=== PATIENT | female | born 1930 | race Caucasian/White ===

== ENCOUNTER 2017-09-22 20:30 | Inpatient (IN) ==
[2017-09-22 22:07] LABS: Basophils # 0.1 10*3/uL (0.0-0.2); Basophils % 0.6 % (0.0-0.8); Eosinophils # 0.3 10*3/uL (0.0-0.87); Eosinophils % 2.6 % (0.00-10.9); Hematocrit 37.1 VOL% (35.7-47.0); Hemoglobin 12.3 GM/DL (12.0-16.0); Immature Granulocytes % 0.5 %; Immature Granulocytes Absolute 0.05 #; Lymphocytes # 1.5 10*3/uL (1.4-4.0); Lymphocytes % 14.1 % (21.3-54.2); Mean Corpuscular HGB Conc 33.2 GM/DL (32-36); Mean Corpuscular Hemoglobin 30 PG (27-34); Mean Corpuscular Volume 91.4 FL (87-102); Mean Platelet Volume 9.4 FL (9.6-12.0); Monocytes # 1.1 10*3/uL (0.11-0.8); Monocytes % 10.3 % (1.7-12.7); Neutrophils # 7.5 10*3/uL (1.4-7.4); Neutrophils % 71.9 % (38.7-73.9); Platelet Count 233 T/CUMM (130-400); Red Blood Count 4.06 MC/CUMM (3.8-5.5); White Blood Count 10.4 T/CUMM (4-12)
[2017-09-22 22:16] LABS: VBG Base Excess 2.4 MEQ/L (0-4); VBG HCO3 26.6 MEQ/L (24-28); VBG PCO2 39.9 MMHG (41-51); VBG PH 7.435
[2017-09-22] MEDS ORDERED: traMADol 50 MG TABLET PO STA (22:19)
[2017-09-22] MEDS ORDERED: traMADol 50 MG TABLET ONE (22:21)
[2017-09-22 22:56] LABS: Alanine Aminotransferase 30 U/L (13-56); Albumin 3.5 G/DL (3.4-5.0); Alkaline Phosphatase 68 U/L (45-117); Aspartate Amino Transferase 28 U/L (0-37); Blood Urea Nitrogen 26 MG/DL (7-18); Calcium 8.6 MG/DL (8.5-10.1); Glucose 112 MG/DL (74-106); Osmolality,Calculated 282.5 MOS/KG (273-304); Potassium 3.9 MMOL/L (3.5-5.1); Sodium 139 MMOL/L (136-145); Total Protein 6.7 G/DL (6.4-8.3); Troponin I Only < 0.015 NG/ML (0.00-0.045)
[2017-09-22] MEDS ORDERED: ONDANSETRON 4 MG/2 ML VIAL IV PRN (23:53)
[2017-09-22] MEDS ORDERED: ACETAMINOPHEN 325 MG TABLET PO PRN (23:53)
[2017-09-22] MEDS ORDERED: FUROSEMIDE 40 MG/4 ML VIAL IV STA (23:53)
[2017-09-23] MEDS ORDERED: FUROSEMIDE 40 MG/4 ML VIAL ONE ×2 (00:27→09:38)
[2017-09-23] MEDS: DOCUSATE SODIUM 100 MG CAPSULE PO SCH ×2 (08:44→20:22)
[2017-09-23] MEDS: PANTOPRAZOLE 40 MG TABLET PO SCH (08:44)
[2017-09-23] MEDS ORDERED: CARVEDILOL 3.125 MG TABLET PO STA ×2 (09:10→09:16)
[2017-09-23] MEDS ORDERED: APIXABAN 2.5 MG TABLET PO SCH (09:30)
[2017-09-23] MEDS ORDERED: CARVEDILOL 3.125 MG TABLET ONE (09:32)
[2017-09-23] MEDS: FUROSEMIDE 40 MG/4 ML VIAL IV SCH ×3 (09:39→15:54)
[2017-09-23] MEDS ORDERED: traMADol 50 MG TABLET PO PRN ×2 (10:35→13:27)
[2017-09-23] MEDS ORDERED: traMADol 50 MG TABLET ONE (11:08)
[2017-09-23] MEDS: POTASSIUM CHLORIDE 8 MEQ CAPSULE PO SCH ×2 (11:50→20:22)
[2017-09-23] MEDS: CARVEDILOL 25 MG TABLET PO SCH (20:22)
[2017-09-23] MEDS: ESCITALOPRAM 10 MG TABLET PO SCH (20:22)
[2017-09-23] MEDS: APIXABAN 2.5 MG TABLET PO SCH (20:22)
[2017-09-23] MEDS ORDERED: CARVEDILOL 12.5 MG TABLET PO SCH (21:00)
[2017-09-24 05:19] LABS: Basophils # 0.1 10*3/uL (0.0-0.2); Basophils % 0.7 % (0.0-0.8); Eosinophils # 0.2 10*3/uL (0.0-0.87); Eosinophils % 2.1 % (0.00-10.9); Hematocrit 34.1 VOL% (35.7-47.0); Hemoglobin 11.7 GM/DL (12.0-16.0); Immature Granulocytes % 0.3 %; Immature Granulocytes Absolute 0.03 #; Lymphocytes # 1.7 10*3/uL (1.4-4.0); Lymphocytes % 19.2 % (21.3-54.2); Mean Corpuscular HGB Conc 34.3 GM/DL (32-36); Mean Corpuscular Hemoglobin 30 PG (27-34); Mean Corpuscular Volume 88.3 FL (87-102); Mean Platelet Volume 9.5 FL (9.6-12.0); Monocytes # 1.1 10*3/uL (0.11-0.8); Monocytes % 12.7 % (1.7-12.7); Neutrophils # 5.6 10*3/uL (1.4-7.4); Platelet Count 240 T/CUMM (130-400); Red Blood Count 3.86 MC/CUMM (3.8-5.5); Red Cell Distribution Width 13.7 % (9.3-17.3); White Blood Count 8.6 T/CUMM (4-12)
[2017-09-24 06:04] LABS: Calcium 8.6 MG/DL (8.5-10.1); Osmolality,Calculated 282.4 MOS/KG (273-304); Potassium 3.3 MMOL/L (3.5-5.1)
[2017-09-24] MEDS ORDERED: NON-FORMULARY MEDICATION (Potassium Chloride [Klor-Con 10] 10 MEQ) PO SCH (09:00)
[2017-09-24] MEDS: CITALOPRAM 20 MG TABLET PO SCH (09:02)
[2017-09-24] MEDS: CARVEDILOL 25 MG TABLET PO SCH ×2 (09:03→21:37)
[2017-09-24] MEDS: DOCUSATE SODIUM 100 MG CAPSULE PO SCH ×2 (09:03→21:35)
[2017-09-24] MEDS: APIXABAN 2.5 MG TABLET PO SCH ×2 (09:03→21:37)
[2017-09-24] MEDS: POTASSIUM CHLORIDE 8 MEQ CAPSULE PO SCH ×3 (09:03→21:38)
[2017-09-24] MEDS: PANTOPRAZOLE 40 MG TABLET PO SCH (09:03)
[2017-09-24] MEDS: amLODIPine 10 MG TABLET PO SCH (09:03)
[2017-09-24] MEDS: FUROSEMIDE 40 MG/4 ML VIAL IV SCH ×2 (09:04→16:27)
[2017-09-24] MEDS: SOLIFENACIN 5 MG TABLET PO SCH (09:04)
[2017-09-24] MEDS: ESCITALOPRAM 10 MG TABLET PO SCH (21:36)
[2017-09-25 07:05] LABS: Basophils # 0.1 10*3/uL (0.0-0.2); Basophils % 0.7 % (0.0-0.8); Eosinophils # 0.2 10*3/uL (0.0-0.87); Eosinophils % 2.3 % (0.00-10.9); Hematocrit 35.2 VOL% (35.7-47.0); Hemoglobin 11.8 GM/DL (12.0-16.0); Immature Granulocytes % 0.3 %; Immature Granulocytes Absolute 0.03 #; Lymphocytes # 1.6 10*3/uL (1.4-4.0); Lymphocytes % 16.3 % (21.3-54.2); Mean Corpuscular HGB Conc 33.5 GM/DL (32-36); Mean Corpuscular Hemoglobin 30 PG (27-34); Mean Corpuscular Volume 88.9 FL (87-102); Monocytes # 1.1 10*3/uL (0.11-0.8); Monocytes % 11.5 % (1.7-12.7); Neutrophils # 6.7 10*3/uL (1.4-7.4); Neutrophils % 68.9 % (38.7-73.9); Platelet Count 230 T/CUMM (130-400); Red Blood Count 3.96 MC/CUMM (3.8-5.5); Red Cell Distribution Width 13.7 % (9.3-17.3); White Blood Count 9.7 T/CUMM (4-12)
[2017-09-25 07:36] LABS: Calcium 8.7 MG/DL (8.5-10.1); Osmolality,Calculated 288.1 MOS/KG (273-304); Potassium 3.3 MMOL/L (3.5-5.1)
[2017-09-25] MEDS: POTASSIUM CHLORIDE 8 MEQ CAPSULE PO SCH ×3 (08:47→20:57)
[2017-09-25] MEDS: DOCUSATE SODIUM 100 MG CAPSULE PO SCH ×3 (08:48→20:57)
[2017-09-25] MEDS: PANTOPRAZOLE 40 MG TABLET PO SCH (08:48)
[2017-09-25] MEDS: APIXABAN 2.5 MG TABLET PO SCH ×2 (08:48→20:56)
[2017-09-25] MEDS: CITALOPRAM 20 MG TABLET PO SCH (08:48)
[2017-09-25] MEDS: CARVEDILOL 25 MG TABLET PO SCH ×2 (08:49→20:55)
[2017-09-25] MEDS: amLODIPine 10 MG TABLET PO SCH (08:49)
[2017-09-25] MEDS: SOLIFENACIN 5 MG TABLET PO SCH (08:49)
[2017-09-25] MEDS: FUROSEMIDE 40 MG/4 ML VIAL IV SCH (08:53)
[2017-09-25] MEDS: FUROSEMIDE 40 MG TABLET PO SCH ×2 (09:50→16:03)
[2017-09-25] MEDS: ESCITALOPRAM 10 MG TABLET PO SCH (20:57)
[2017-09-26 07:14] LABS: Basophils # 0.1 10*3/uL (0.0-0.2); Basophils % 0.6 % (0.0-0.8); Eosinophils # 0.3 10*3/uL (0.0-0.87); Eosinophils % 3.2 % (0.00-10.9); Immature Granulocytes % 0.5 %; Immature Granulocytes Absolute 0.05 #; Lymphocytes # 1.5 10*3/uL (1.4-4.0); Lymphocytes % 14.7 % (21.3-54.2); Mean Corpuscular HGB Conc 33.3 GM/DL (32-36); Mean Corpuscular Hemoglobin 31 PG (27-34); Mean Corpuscular Volume 91.8 FL (87-102); Mean Platelet Volume 9.2 FL (9.6-12.0); Monocytes % 9.4 % (1.7-12.7); Neutrophils # 7.3 10*3/uL (1.4-7.4); Neutrophils % 71.6 % (38.7-73.9); Platelet Count 232 T/CUMM (130-400); Red Blood Count 3.92 MC/CUMM (3.8-5.5); Red Cell Distribution Width 13.7 % (9.3-17.3); White Blood Count 10.2 T/CUMM (4-12)
[2017-09-26 07:37] LABS: Calcium 8.7 MG/DL (8.5-10.1); Potassium 3.3 MMOL/L (3.5-5.1)
[2017-09-26] MEDS ORDERED: POTASSIUM CHLORIDE 8 MEQ CAPSULE PO ONE (08:13)
[2017-09-26 08:25] VITALS: BP 154/70
[2017-09-26] MEDS: POTASSIUM CHLORIDE 8 MEQ CAPSULE PO SCH (09:04)
[2017-09-26] MEDS: SOLIFENACIN 5 MG TABLET PO SCH (09:04)
[2017-09-26] MEDS: CITALOPRAM 20 MG TABLET PO SCH (09:04)
[2017-09-26] MEDS: amLODIPine 10 MG TABLET PO SCH (09:04)
[2017-09-26] MEDS: DOCUSATE SODIUM 100 MG CAPSULE PO SCH (09:04)
[2017-09-26] MEDS: FUROSEMIDE 40 MG TABLET PO SCH (09:05)
[2017-09-26] MEDS: APIXABAN 2.5 MG TABLET PO SCH (09:05)
[2017-09-26] MEDS: PANTOPRAZOLE 40 MG TABLET PO SCH (09:05)
[2017-09-26] MEDS: CARVEDILOL 25 MG TABLET PO SCH (09:05)
[2017-09-26] MEDS ORDERED: POTASSIUM CHLORIDE 20 MEQ TABLET PO ONE (10:42)
== END 2017-09-26 13:10 | disposition home health service (06) | DRG 291 ==
LOC: N.ED 20:30 → N.EDINP 23:53 → N.4E 09-23 12:51
PROVIDERS: ADMIT Internal Medicine; ATTEND Internal Medicine

== ENCOUNTER 2018-12-16 08:28 | Inpatient (IN) ==
[2018-12-16] MEDS ORDERED: ATROPINE 1 MG/10 ML SYRINGE IV STA (09:33)
[2018-12-16] MEDS ORDERED: FUROSEMIDE 40 MG/4 ML VIAL IV STA (09:42)
[2018-12-16] MEDS ORDERED: ALBUTEROL/IPRATROPIUM 3 ML NEB RESP TX STA (09:42)
[2018-12-16 10:05] LABS: Basophils # 0.1 10*3/uL (0.0-0.2); Basophils % 0.7 % (0.0-0.8); Eosinophils # 0.3 10*3/uL (0.0-0.87); Eosinophils % 3.6 % (0.00-10.9); Hemoglobin 13.7 GM/DL (12.0-16.0); Immature Granulocytes % 0.2 %; Immature Granulocytes Absolute 0.02 #; Lymphocytes # 1.7 10*3/uL (1.4-4.0); Lymphocytes % 21.1 % (21.3-54.2); Mean Corpuscular HGB Conc 32.6 GM/DL (32-36); Mean Corpuscular Volume 90.5 FL (87-102); Mean Platelet Volume 8.9 FL (9.6-12.0); Monocytes % 10.5 % (1.7-12.7); Neutrophils % 63.9 % (38.7-73.9); Platelet Count 313 T/CUMM (130-400); Red Blood Count 4.64 MC/CUMM (3.8-5.5); Red Cell Distribution Width 12.6 % (9.3-17.3); White Blood Count 8.1 T/CUMM (4-12)
[2018-12-16 10:13] LABS: PT Patient Result 10.6 SECS
[2018-12-16 10:35] LABS: Barbiturates Screen,Urine Negative (Negative); Benzodiazepines Screen,Urine Negative (Negative); Cannabinoid Screen,Urine Negative (Negative); Opiate Screen,Urine Negative (Negative); Phencyclidine Screen,Urine Negative (Negative)
[2018-12-16 10:45] LABS: Apearance,Urine CLEAR (Clear); Bilirubin,Urine Negative (Negative); Blood, Urine Negative (Negative); Glucose,Urine (UA) Negative (Negative); Ketones,Urine Negative (Negative); Nitrite,Urine Positive (Negative); Protein,Urine Negative; RBC,Urine <1 /HPF (0-4); Urine Color Colorless (Yellow); Urine Specific Gravity 1.005 (1.001-1.035); Urine Urobilinogen < 2.0 EU/DL (0.2-1.0); WBC,Urine <1 /HPF (0-6)
[2018-12-16] MEDS ORDERED: cefTRIAXone 1,000 MG in SODIUM CHLORIDE 0.9% 100 ML IV STA (10:48)
[2018-12-16 10:50] LABS: Albumin 3.7 G/DL (3.4-5.0); Bilirubin,Total 0.5 MG/DL (0.2-1.0); Calcium 8.7 MG/DL (8.5-10.1); Thyroid Stimulating Hormone 2.16 uIU/ml (0.358-3.74); Total Protein 7.2 G/DL (6.4-8.3)
[2018-12-16] MEDS ORDERED: SODIUM CHLORIDE 0.9% 1,000 ML IV SCH (14:40)
[2018-12-16] MEDS ORDERED: ONDANSETRON 4 MG/2 ML VIAL IV PRN (14:40)
[2018-12-16] MEDS: FUROSEMIDE 20 MG/2 ML VIAL IV SCH (16:18)
[2018-12-16] MEDS: QUEtiapine 100 MG TABLET PO SCH (16:18)
[2018-12-16] MEDS ORDERED: QUEtiapine 25 MG TABLET PO ONE (20:49)
[2018-12-16] MEDS: DOCUSATE SODIUM 100 MG CAPSULE PO SCH (21:34)
[2018-12-16] MEDS: ASCORBIC ACID 500 MG TABLET PO SCH (21:34)
[2018-12-16] MEDS: FAMOTIDINE 20 MG TABLET PO SCH (21:34)
[2018-12-16] MEDS: MAGNESIUM CHLORIDE 64 MG TABLET PO SCH (21:35)
[2018-12-17 05:15] LABS: Basophils # 0.1 10*3/uL (0.0-0.2); Basophils % 0.5 % (0.0-0.8); Eosinophils # 0.3 10*3/uL (0.0-0.87); Hematocrit 41.3 VOL% (35.7-47.0); Hemoglobin 13.9 GM/DL (12.0-16.0); Immature Granulocytes % 0.4 %; Immature Granulocytes Absolute 0.04 #; Lymphocytes # 2.1 10*3/uL (1.4-4.0); Lymphocytes % 21.5 % (21.3-54.2); Mean Corpuscular HGB Conc 33.7 GM/DL (32-36); Mean Corpuscular Volume 89.6 FL (87-102); Mean Platelet Volume 9.8 FL (9.6-12.0); Monocytes % 11.4 % (1.7-12.7); Neutrophils % 63.2 % (38.7-73.9); Platelet Count 328 T/CUMM (130-400); Red Blood Count 4.61 MC/CUMM (3.8-5.5); Red Cell Distribution Width 12.6 % (9.3-17.3); White Blood Count 9.5 T/CUMM (4-12)
[2018-12-17 05:35] LABS: Albumin 3.6 G/DL (3.4-5.0); Bilirubin,Total 0.4 MG/DL (0.2-1.0); Total Protein 7.4 G/DL (6.4-8.3)
[2018-12-17] MEDS ORDERED: POLYVINYL ALCOHOL 1.4% OPH SOLN 15 ML BOTTLE BOTH EYES PRN (08:29)
[2018-12-17] MEDS ORDERED: SPIRONOLACTONE 50 MG TABLET PO SCH (09:00)
[2018-12-17] MEDS: FUROSEMIDE 40 MG TABLET PO SCH (09:13)
[2018-12-17] MEDS: CALCIUM (CARBONATE)/VITAMIN D 250 MG-125 UNIT TABLET PO SCH (09:14)
[2018-12-17] MEDS: amLODIPine 2.5 MG TABLET PO SCH (09:14)
[2018-12-17] MEDS: SOLIFENACIN 5 MG TABLET PO SCH (09:14)
[2018-12-17] MEDS: DOCUSATE SODIUM 100 MG CAPSULE PO SCH ×2 (09:14→21:08)
[2018-12-17] MEDS: CITALOPRAM 20 MG TABLET PO SCH (09:14)
[2018-12-17] MEDS: ASCORBIC ACID 500 MG TABLET PO SCH ×2 (09:14→21:08)
[2018-12-17] MEDS: PANTOPRAZOLE 40 MG TABLET PO SCH (09:14)
[2018-12-17] MEDS: FLUTICASONE 50 MCG NASAL SPRAY 16 GM BOTTLE BOTH NARES SCH (09:14)
[2018-12-17] MEDS: QUEtiapine 25 MG TABLET PO SCH (09:17)
[2018-12-17] MEDS: POTASSIUM CHLORIDE 8 MEQ CAPSULE PO SCH ×3 (09:17→17:15)
[2018-12-17] MEDS: FUROSEMIDE 20 MG/2 ML VIAL IV SCH (09:52)
[2018-12-17] MEDS: MAGNESIUM CHLORIDE 64 MG TABLET PO SCH ×2 (09:53→21:08)
[2018-12-17] MEDS: cefTRIAXone 1,000 MG in SYRINGE 1 EACH IV SCH (10:57)
[2018-12-17] MEDS ORDERED: FUROSEMIDE 20 MG TABLET PO SCH (16:30)
[2018-12-17] MEDS: QUEtiapine 100 MG TABLET PO SCH (17:17)
[2018-12-17] MEDS: FAMOTIDINE 20 MG TABLET PO SCH (21:08)
[2018-12-18 06:16] LABS: Calcium 9.4 MG/DL (8.5-10.1); Osmolality,Calculated 283.2 MOS/KG (273-304)
[2018-12-18 06:17] LABS: Basophils # 0.1 10*3/uL (0.0-0.2); Basophils % 0.7 % (0.0-0.8); Eosinophils # 0.3 10*3/uL (0.0-0.87); Eosinophils % 2.2 % (0.00-10.9); Hematocrit 45.2 VOL% (35.7-47.0); Hemoglobin 15.5 GM/DL (12.0-16.0); Immature Granulocytes % 0.5 %; Immature Granulocytes Absolute 0.06 #; Lymphocytes # 2.3 10*3/uL (1.4-4.0); Lymphocytes % 19.5 % (21.3-54.2); Mean Corpuscular HGB Conc 34.3 GM/DL (32-36); Mean Corpuscular Volume 89.7 FL (87-102); Mean Platelet Volume 9.3 FL (9.6-12.0); Neutrophils % 65.1 % (38.7-73.9); Platelet Count 367 T/CUMM (130-400); Red Blood Count 5.04 MC/CUMM (3.8-5.5); Red Cell Distribution Width 12.6 % (9.3-17.3); White Blood Count 11.8 T/CUMM (4-12)
[2018-12-18] MEDS: PANTOPRAZOLE 40 MG TABLET PO SCH (09:58)
[2018-12-18] MEDS: QUEtiapine 25 MG TABLET PO SCH (09:58)
[2018-12-18] MEDS: MAGNESIUM CHLORIDE 64 MG TABLET PO SCH ×3 (09:58→20:07)
[2018-12-18] MEDS: CITALOPRAM 20 MG TABLET PO SCH (09:58)
[2018-12-18] MEDS: ASCORBIC ACID 500 MG TABLET PO SCH ×3 (09:59→20:07)
[2018-12-18] MEDS: CALCIUM (CARBONATE)/VITAMIN D 250 MG-125 UNIT TABLET PO SCH (09:59)
[2018-12-18] MEDS: DOCUSATE SODIUM 100 MG CAPSULE PO SCH ×3 (09:59→20:07)
[2018-12-18] MEDS: amLODIPine 2.5 MG TABLET PO SCH (09:59)
[2018-12-18] MEDS: SOLIFENACIN 5 MG TABLET PO SCH (09:59)
[2018-12-18] MEDS: cefTRIAXone 1,000 MG in SYRINGE 1 EACH IV SCH (09:59)
[2018-12-18] MEDS: FLUTICASONE 50 MCG NASAL SPRAY 16 GM BOTTLE BOTH NARES SCH (10:00)
[2018-12-18] MEDS: SODIUM CHLORIDE 0.9% 1,000 ML IV SCH (10:00)
[2018-12-18] MEDS: ENOXAPARIN 30 MG/0.3 ML SYRINGE SUBCUT SCH (10:00)
[2018-12-18] MEDS: POTASSIUM CHLORIDE 8 MEQ CAPSULE PO SCH (11:16)
[2018-12-18] MEDS: FUROSEMIDE 40 MG TABLET PO SCH (11:16)
[2018-12-18] MEDS: CEFEPIME 1,000 MG in SYRINGE 1 EACH IV SCH (15:48)
[2018-12-18] MEDS: QUEtiapine 100 MG TABLET PO SCH (17:43)
[2018-12-18] MEDS: FAMOTIDINE 20 MG TABLET PO SCH ×2 (19:18→20:07)
[2018-12-18] MEDS: LORazepam 2 MG/1 ML VIAL IV PRN (20:12)
[2018-12-18] MEDS: HALOPERIDOL 5 MG/ML AMP IV PRN (21:32)
[2018-12-19] MEDS: CEFEPIME 1,000 MG in SYRINGE 1 EACH IV SCH ×2 (02:10→14:05)
[2018-12-19 04:31] LABS: Basophils # 0.1 10*3/uL (0.0-0.2); Basophils % 0.7 % (0.0-0.8); Eosinophils # 0.4 10*3/uL (0.0-0.87); Eosinophils % 4.9 % (0.00-10.9); Hematocrit 40.3 VOL% (35.7-47.0); Hemoglobin 13.1 GM/DL (12.0-16.0); Immature Granulocytes % 0.6 %; Immature Granulocytes Absolute 0.05 #; Lymphocytes # 1.5 10*3/uL (1.4-4.0); Lymphocytes % 17.1 % (21.3-54.2); Mean Corpuscular HGB Conc 32.5 GM/DL (32-36); Mean Corpuscular Volume 91.6 FL (87-102); Mean Platelet Volume 9.4 FL (9.6-12.0); Monocytes % 12.8 % (1.7-12.7); Neutrophils % 63.9 % (38.7-73.9); Platelet Count 303 T/CUMM (130-400); Red Cell Distribution Width 12.4 % (9.3-17.3); White Blood Count 8.8 T/CUMM (4-12)
[2018-12-19] MEDS: SODIUM CHLORIDE 0.9% 1,000 ML IV SCH (04:33)
[2018-12-19 04:58] LABS: Calcium 8.6 MG/DL (8.5-10.1); Osmolality,Calculated 282.2 MOS/KG (273-304)
[2018-12-19] MEDS: QUEtiapine 25 MG TABLET PO SCH (10:02)
[2018-12-19] MEDS: amLODIPine 2.5 MG TABLET PO SCH (10:02)
[2018-12-19] MEDS: CALCIUM (CARBONATE)/VITAMIN D 250 MG-125 UNIT TABLET PO SCH (10:02)
[2018-12-19] MEDS: SOLIFENACIN 5 MG TABLET PO SCH (10:02)
[2018-12-19] MEDS: ENOXAPARIN 30 MG/0.3 ML SYRINGE SUBCUT SCH (10:02)
[2018-12-19] MEDS: ASCORBIC ACID 500 MG TABLET PO SCH ×2 (10:02→20:01)
[2018-12-19] MEDS: DOCUSATE SODIUM 100 MG CAPSULE PO SCH ×2 (10:03→20:00)
[2018-12-19] MEDS: PANTOPRAZOLE 40 MG TABLET PO SCH (10:03)
[2018-12-19] MEDS: MAGNESIUM CHLORIDE 64 MG TABLET PO SCH ×2 (10:03→20:01)
[2018-12-19] MEDS: CITALOPRAM 20 MG TABLET PO SCH (10:04)
[2018-12-19] MEDS: FLUTICASONE 50 MCG NASAL SPRAY 16 GM BOTTLE BOTH NARES SCH (10:05)
[2018-12-19] MEDS: QUEtiapine 100 MG TABLET PO SCH (16:48)
[2018-12-19] MEDS: LORazepam 2 MG/1 ML VIAL IV PRN (19:53)
[2018-12-19] MEDS: HALOPERIDOL 5 MG/ML AMP IV PRN (19:54)
[2018-12-19] MEDS: FAMOTIDINE 20 MG TABLET PO SCH (20:01)
[2018-12-20] MEDS: SODIUM CHLORIDE 0.9% 1,000 ML IV SCH ×2 (00:34→19:36)
[2018-12-20] MEDS: CEFEPIME 1,000 MG in SYRINGE 1 EACH IV SCH ×2 (01:36→14:37)
[2018-12-20 05:21] LABS: Calcium 8.6 MG/DL (8.5-10.1); Osmolality,Calculated 282.7 MOS/KG (273-304)
[2018-12-20] MEDS: amLODIPine 2.5 MG TABLET PO SCH (09:09)
[2018-12-20] MEDS: CITALOPRAM 20 MG TABLET PO SCH (09:09)
[2018-12-20] MEDS: ENOXAPARIN 30 MG/0.3 ML SYRINGE SUBCUT SCH (09:09)
[2018-12-20] MEDS: ASCORBIC ACID 500 MG TABLET PO SCH ×3 (09:09→20:02)
[2018-12-20] MEDS: PANTOPRAZOLE 40 MG TABLET PO SCH (09:10)
[2018-12-20] MEDS: SOLIFENACIN 5 MG TABLET PO SCH (09:10)
[2018-12-20] MEDS: DOCUSATE SODIUM 100 MG CAPSULE PO SCH ×3 (09:10→20:01)
[2018-12-20] MEDS: FLUTICASONE 50 MCG NASAL SPRAY 16 GM BOTTLE BOTH NARES SCH (09:10)
[2018-12-20] MEDS: MAGNESIUM CHLORIDE 64 MG TABLET PO SCH ×3 (09:10→20:02)
[2018-12-20] MEDS: CALCIUM (CARBONATE)/VITAMIN D 250 MG-125 UNIT TABLET PO SCH (09:12)
[2018-12-20] MEDS: QUEtiapine 25 MG TABLET PO SCH (09:14)
[2018-12-20] MEDS: QUEtiapine 100 MG TABLET PO SCH (17:39)
[2018-12-20] MEDS: FAMOTIDINE 20 MG TABLET PO SCH ×2 (19:30→20:01)
[2018-12-21] MEDS: LORazepam 2 MG/1 ML VIAL IV PRN (01:25)
[2018-12-21] MEDS: HALOPERIDOL 5 MG/ML AMP IV PRN (01:26)
[2018-12-21] MEDS: CEFEPIME 1,000 MG in SYRINGE 1 EACH IV SCH ×2 (01:36→15:20)
[2018-12-21 04:49] LABS: Calcium 8.1 MG/DL (8.5-10.1); Osmolality,Calculated 284.5 MOS/KG (273-304)
[2018-12-21] MEDS: SOLIFENACIN 5 MG TABLET PO SCH (09:40)
[2018-12-21] MEDS: ASCORBIC ACID 500 MG TABLET PO SCH ×2 (09:40→21:23)
[2018-12-21] MEDS: PANTOPRAZOLE 40 MG TABLET PO SCH (09:40)
[2018-12-21] MEDS: DOCUSATE SODIUM 100 MG CAPSULE PO SCH ×2 (09:40→21:23)
[2018-12-21] MEDS: QUEtiapine 25 MG TABLET PO SCH (09:40)
[2018-12-21] MEDS: CITALOPRAM 20 MG TABLET PO SCH (09:40)
[2018-12-21] MEDS: amLODIPine 2.5 MG TABLET PO SCH (09:41)
[2018-12-21] MEDS: MAGNESIUM CHLORIDE 64 MG TABLET PO SCH ×2 (09:41→21:23)
[2018-12-21] MEDS: FLUTICASONE 50 MCG NASAL SPRAY 16 GM BOTTLE BOTH NARES SCH (09:42)
[2018-12-21] MEDS: CALCIUM (CARBONATE)/VITAMIN D 250 MG-125 UNIT TABLET PO SCH (09:44)
[2018-12-21] MEDS: ENOXAPARIN 30 MG/0.3 ML SYRINGE SUBCUT SCH (10:58)
[2018-12-21] MEDS ORDERED: ATROPINE 1 MG/10 ML SYRINGE IV PRN (13:35)
[2018-12-21] MEDS: SODIUM CHLORIDE 0.9% 1,000 ML IV SCH (16:00)
[2018-12-21] MEDS: QUEtiapine 100 MG TABLET PO SCH (17:22)
[2018-12-21] MEDS: FAMOTIDINE 20 MG TABLET PO SCH (21:23)
[2018-12-22] MEDS ORDERED: DIAZEPAM 5 MG TABLET PO ONE (00:01)
[2018-12-22] MEDS ORDERED: diphenhydrAMINE CAP 25 MG CAPSULE PO ONE (00:01)
[2018-12-22 04:30] LABS: Basophils # 0.1 10*3/uL (0.0-0.2); Basophils % 0.7 % (0.0-0.8); Eosinophils # 0.4 10*3/uL (0.0-0.87); Eosinophils % 4.2 % (0.00-10.9); Hematocrit 34.4 VOL% (35.7-47.0); Hemoglobin 11.4 GM/DL (12.0-16.0); Immature Granulocytes % 0.5 %; Immature Granulocytes Absolute 0.05 #; Lymphocytes # 1.4 10*3/uL (1.4-4.0); Lymphocytes % 13.4 % (21.3-54.2); Mean Corpuscular HGB Conc 33.1 GM/DL (32-36); Mean Corpuscular Volume 92.5 FL (87-102); Mean Platelet Volume 9.5 FL (9.6-12.0); Monocytes % 11.3 % (1.7-12.7); Neutrophils % 69.9 % (38.7-73.9); Platelet Count 268 T/CUMM (130-400); Red Blood Count 3.72 MC/CUMM (3.8-5.5); Red Cell Distribution Width 13.5 % (9.3-17.3); White Blood Count 10.4 T/CUMM (4-12)
[2018-12-22 04:42] LABS: INR 0.9
[2018-12-22 05:10] LABS: Calcium 8.6 MG/DL (8.5-10.1); Osmolality,Calculated 282.7 MOS/KG (273-304)
[2018-12-22] MEDS ORDERED: DIAZEPAM 5 MG TABLET ONE (09:23)
[2018-12-22] MEDS ORDERED: diphenhydrAMINE CAP 25 MG CAPSULE ONE (09:23)
[2018-12-22] MEDS: amLODIPine 2.5 MG TABLET PO SCH (11:28)
[2018-12-22] MEDS: PANTOPRAZOLE 40 MG TABLET PO SCH (11:28)
[2018-12-22] MEDS: FLUTICASONE 50 MCG NASAL SPRAY 16 GM BOTTLE BOTH NARES SCH (11:29)
[2018-12-22] MEDS ORDERED: LIDOCAINE 1%/EPI INJ 20 ML VIAL ONE ×2 (11:47→11:48)
[2018-12-22] MEDS: MAGNESIUM CHLORIDE 64 MG TABLET PO SCH ×2 (11:55→21:04)
[2018-12-22] MEDS: ASCORBIC ACID 500 MG TABLET PO SCH ×2 (11:55→21:04)
[2018-12-22] MEDS: SOLIFENACIN 5 MG TABLET PO SCH (11:55)
[2018-12-22] MEDS: QUEtiapine 25 MG TABLET PO SCH (11:56)
[2018-12-22] MEDS: CALCIUM (CARBONATE)/VITAMIN D 250 MG-125 UNIT TABLET PO SCH (11:56)
[2018-12-22] MEDS: DOCUSATE SODIUM 100 MG CAPSULE PO SCH ×2 (11:56→21:04)
[2018-12-22] MEDS: CITALOPRAM 20 MG TABLET PO SCH (11:57)
[2018-12-22] MEDS ORDERED: HYDROmorphone 2 MG/1 ML VIAL ONE (12:00)
[2018-12-22] MEDS ORDERED: MIDAZOLAM 2 MG/2 ML VIAL ONE (12:00)
[2018-12-22] MEDS ORDERED: ceFAZolin 1,000 MG VIAL ONE (12:01)
[2018-12-22] MEDS ORDERED: TISSUE ADHESIVE 1 EACH APPLICATOR TOP ONE (12:22)
[2018-12-22] MEDS: CEFEPIME 1,000 MG in SYRINGE 1 EACH IV SCH (15:27)
[2018-12-22] MEDS: SODIUM CHLORIDE 0.9% 1,000 ML IV SCH (15:40)
[2018-12-22] MEDS: QUEtiapine 100 MG TABLET PO SCH (16:45)
[2018-12-22] MEDS: ACETAMINOPHEN 325 MG TABLET PO PRN (18:27)
[2018-12-22] MEDS: FAMOTIDINE 20 MG TABLET PO SCH (21:04)
[2018-12-23 06:04] LABS: Calcium 8.3 MG/DL (8.5-10.1); Osmolality,Calculated 278.8 MOS/KG (273-304)
[2018-12-23 06:08] LABS: Basophils # 0.1 10*3/uL (0.0-0.2); Basophils % 0.6 % (0.0-0.8); Eosinophils # 0.4 10*3/uL (0.0-0.87); Eosinophils % 3.7 % (0.00-10.9); Hematocrit 38.7 VOL% (35.7-47.0); Hemoglobin 12.4 GM/DL (12.0-16.0); Immature Granulocytes % 0.5 %; Immature Granulocytes Absolute 0.05 #; Lymphocytes # 1.7 10*3/uL (1.4-4.0); Lymphocytes % 16.2 % (21.3-54.2); Mean Corpuscular Volume 93.7 FL (87-102); Mean Platelet Volume 10.9 FL (9.6-12.0); Monocytes % 11.8 % (1.7-12.7); Neutrophils % 67.2 % (38.7-73.9); Platelet Count 198 T/CUMM (130-400); Red Blood Count 4.13 MC/CUMM (3.8-5.5); Red Cell Distribution Width 13.4 % (9.3-17.3); White Blood Count 10.2 T/CUMM (4-12)
[2018-12-23] MEDS: SODIUM CHLORIDE 0.9% 1,000 ML IV SCH (08:55)
[2018-12-23] MEDS: FLUTICASONE 50 MCG NASAL SPRAY 16 GM BOTTLE BOTH NARES SCH (09:03)
[2018-12-23] MEDS: DOCUSATE SODIUM 100 MG CAPSULE PO SCH (09:04)
[2018-12-23] MEDS: amLODIPine 2.5 MG TABLET PO SCH (09:04)
[2018-12-23] MEDS: CITALOPRAM 20 MG TABLET PO SCH (09:04)
[2018-12-23] MEDS: SOLIFENACIN 5 MG TABLET PO SCH (09:04)
[2018-12-23] MEDS: PANTOPRAZOLE 40 MG TABLET PO SCH (09:04)
[2018-12-23] MEDS: CALCIUM (CARBONATE)/VITAMIN D 250 MG-125 UNIT TABLET PO SCH (09:04)
[2018-12-23] MEDS: MAGNESIUM CHLORIDE 64 MG TABLET PO SCH (09:04)
[2018-12-23] MEDS: QUEtiapine 25 MG TABLET PO SCH (09:05)
[2018-12-23] MEDS: ACETAMINOPHEN 325 MG TABLET PO PRN (09:06)
[2018-12-23] MEDS: ASCORBIC ACID 500 MG TABLET PO SCH (09:06)
[2018-12-23 12:04] VITALS: BP 146/72
[2018-12-23] MEDS: CEFEPIME 1,000 MG in SYRINGE 1 EACH IV SCH (17:57)
[2018-12-23] MEDS: QUEtiapine 100 MG TABLET PO SCH (17:58)
== END 2018-12-23 18:40 | disposition swing bed (61) | DRG 242 ==
LOC: EDBD → EDUNIT# → N.ED 08:28 → N.EDINP 11:23 → N.TELES 14:21
PROVIDERS: ADMIT Internal Medicine; ATTEND Internal Medicine